=== PATIENT | female | born 1980 | race Caucasian/White ===

== ENCOUNTER → 2018-06-13 07:36 | Outpatient (CLI) | payer OTHER, SELFPAY ==
--- NOTE | 2018-06-13 | DI.MG.S_ITS ---
BILATERAL DIGITAL SCREENING MAMMOGRAM 3D/2D WITH CAD: 06/13/2018 CLINICAL: Routine screening. Comparison is made to exam dated: 08/01/2015 mammogram - [facility]. The tissue of both breasts is heterogeneously dense. This may lower the sensitivity of mammography. Current study was also evaluated with a Computer Aided Detection (CAD) system. No significant masses, calcifications, or other findings are seen in either breast. There has been no significant interval change. IMPRESSION: NEGATIVE There is no mammographic evidence of malignancy. A 1 year screening mammogram is recommended. This exam was interpreted at Station ID: [id number]. NOTE: For mammograms, a report in lay terms will be sent to the patient. Approximately 15% of breast malignancies will not be visualized mammographically. In the management of a palpable breast mass, a negative mammogram must not discourage biopsy of a clinically suspicious lesion. Electronically Signed By: Dain farris/janes:06/13/2018 09:39:08 letter sent: Normal Exam ACR BI-RADS Category 1: Negative [id number]
== END ==
PROVIDERS: Visit Provider Physician Assistant
DX: Z12.31 Encounter for screening mammogram for malignant neoplasm of breast (principal)
CPT/HCPCS: 77063; 77067

== ENCOUNTER → 2018-07-15 09:59 | Outpatient (CLI) | payer OTHER, SELFPAY ==
[2018-07-15 13:25] LABS: Urine N gonorrhoeae NOT DETECTED
[2018-07-15 13:53] LABS: Urine Chlamydia NOT DETECTED
== END ==
PROVIDERS: PCP Physician Assistant; Visit Provider Physician Assistant
DX: Z11.3 Encounter for screening for infections with a predominantly sexual mode of transmission (principal)
CPT/HCPCS: 87491; 87591

== ENCOUNTER → 2018-07-22 13:04 | Outpatient (CLI) | payer OTHER, SELFPAY ==
[2018-07-22 15:31] LABS: Hepatitis B Surface Antigen NEGATIVE s/c (NEGATIVE)
[2018-07-22 15:51] LABS: HIV 1 and 2 Antibody NEGATIVE (NEGATIVE); Hep C Virus Ab w/Reflex Quant NEGATIVE s/c (NEGATIVE)
[2018-07-28 14:36] LABS: Rapid Plasma Reagin NON-REACTIVE
== END ==
PROVIDERS: PCP Physician Assistant; Visit Provider Physician Assistant
DX: Z11.3 Encounter for screening for infections with a predominantly sexual mode of transmission (principal)
CPT/HCPCS: 36415; 86592; 86703; 86803; 87340

== ENCOUNTER → 2020-02-26 10:40 | Outpatient (CLI) | payer OTHER, SELFPAY ==
--- NOTE | 2020-02-26 | DI.US.S_ITS ---
PROCEDURE: US PELVIC COMPLETE INDICATIONS: VAGINAL BLEEDING FOR 4 WEEKS TECHNIQUE: Real-time scanning was performed of the pelvic organs, with image documentation. Additional endovaginal scanning was necessary due to incomplete visualization of the adnexal and endometrial structures by transabdominal scanning. COMPARISON: None. FINDINGS: Transabdominal scanning: Limited scanning through the kidneys shows no hydronephrosis. No pathologic free abdominal or pelvic fluid. Endovaginal scanning: Uterus: Uterus is normal in size at 4.4 x 5.3 x 5.5 cm. The endometrium measures 18 mm in combined thickness (no focal mass, endometrial hyperplasia). Ovaries: Normal in size bilaterally measuring 1.7 x 3.0 x 2.4 cm on the right and 1.4 x 1.8 x 2.2 cm on the left what appears to be likely a small involuting follicular cyst is seen at the right ovary measuring 8 x 11 x 8 mm. IMPRESSION: Endometrial hyperplasia without identifiable mass or polyp appears present, measuring up to 18 mm in combined thickness. The upper limits of normal is 15 mm. Small involuting right ovarian follicular cyst. Dictated by: Thiago Hernandez M.D. on 02/26/2020 at 12:05 Approved by: Thiago Hernandez M.D. on 02/26/2020 at 12:08
== END ==
PROVIDERS: PCP Physician Assistant; Referring Provider Nurse Practitioner Family; Visit Provider Nurse Practitioner Family
DX: N93.8 Other specified abnormal uterine and vaginal bleeding (principal); R10.31 Right lower quadrant pain; N85.00 Endometrial hyperplasia, unspecified; N83.01 Follicular cyst of right ovary
CPT/HCPCS: 76830; 76856

== ENCOUNTER → 2020-06-20 10:45 | Outpatient (CLI) | payer OTHER, SELFPAY ==
[2020-06-21 18:01] LABS: COVID19 Sendout Not Detected (Not Detect)
== END ==
PROVIDERS: PCP Nurse Practitioner Family; Visit Provider Nurse Practitioner
DX: Z11.59 Encounter for screening for other viral diseases (principal)
CPT/HCPCS: 87635

== ENCOUNTER 2020-06-23 06:44 | Day surgery (SDC) | payer OTHER, SELFPAY ==
[2020-06-22 08:12] VITALS: BMI 34.5
[2020-06-23] VITALS (7 sets, daily range): BP systolic 129–171; BP diastolic 92–103; PULSE 87–97; RESP 12–22; TEMP 35.9–36.4; O2SAT 92–95; BMI 34.2
--- NOTE | 2020-06-23 07:09 | PM.PREOP ---
Pre-operative Note COVID-19 COVID-19 status: Negative Result date/Date tested (Pos, Neg/Pending): 06/20/20 Interval Note History & Physical reviewed/Exam performed by Physician: Yes Changes to H&P: No
--- NOTE | 2020-06-23 07:10 | PM.OP.1 ---
Operative Date/Time/Diagnoses Date of procedure: 06/23/20 Time of procedure: 09:15 Pre-op diagnosis: Nasal airway obstruction, septal deviation, turbinate hypertrophy Post-op diagnosis: same Procedure & Clinicians Procedure: 1. Septoplasty 2. Bilateral inferior turbinate reduction via intramural cautery Same procedure as scheduled: Yes Indications: 40-year-old female with the above diagnoses incompletely managed with medical therapy presents for the above procedures. Following discussion of the material risks benefits complications and alternatives, she elected to proceed. Surgeon: Otoniel Sunshine Click Yes if Unassisted: No Anesthesia Type: General and Local Operative Notes Findings: 3+ right septal deviation, long low spur on the right leading to large low septal flap perforation but left septal flap intact. Left inferior and middle turbinate hypertrophy, mild right inferior turbinate hypertrophy. Closure Type: not applicable Specimen(s): none sent Estimated Blood Loss (mL): 200 Blood products transfused: none Procedure in detail: Following identification and confirmation of consent as well as preoperative Afrin nasal spray, the patient was brought to the operating room suite and placed in the supine position. General endotracheal anesthesia was administered. I infiltrated the septum widely bilaterally with 1% lidocaine 1 100,000 epinephrine followed by temporary packing with cotton with Afrin and 4% lidocaine. Following sterile prep and drape, the packing was removed and I performed a right salomón transection incision, elevated the right mucoperichondrial and mucoperiosteal flap, difficult inferiorly due to the large low septal spur extending far posteriorly, leading to a large right flap perforation. I disarticulated near the bony cartilaginous junction and elevated the left mucoperiosteal flap. Deviated portions of the perpendicular plate of the ethmoid and vomer were resected, as well as the maxillary crest. The residual quadrilateral cartilage was further straightened by trimming it inferiorly. A 2 mm strip of cartilage paralleling the residual 1 cm dorsal and caudal strut was resected to further straighten the quadrilateral cartilage. The hemitransfixion incision was closed with interrupted 5 0 chromic followed by a running 4 0 plain gut mattress suture to reapproximate the septal flaps. At case completion, 20/1000th of an inch silastic splints were placed bilaterally, sutured anteriorly with a single 4 0 nylon. The head of each inferior turbinate had been previously infiltrated with additional local anesthetic and a 25 gauge spinal needle was used to impale the length of the turbinate, with cautery on a setting of 15 activated on slow withdrawal. The left middle turbinate was treated in addition. The turbinates were then outfractured. The procedure completed, sponge and needle counts were correct and she was extubated in the operating room and taken to recovery room in stable condition without known complication. Postoperative care: Nasal saline every hour while awake, Vaseline to the nostrils at all times, begin irrigations t.i.d. beginning pod 1. Humidifier at the bedside blowing on her face. Tylenol alternating with Advil for pain control, oxycodone if necessary for breakthrough pain. Complications: none Post-operative Condition: stable Disposition: same day surgery Plan for aftercare: [place] home
[2020-06-23] MEDS: ACETAMINOPHEN 325 MG TABLET 975 MG PO (07:31)
[2020-06-23] MEDS: OXYMETAZOLINE NASAL SPRAY 30 ML 2 SPRAYS NASAL (07:32)
[2020-06-23] MEDS: LACTATED RINGERS 1,000 ML 42 ML IV (07:33)
[2020-06-23] MEDS: SCOPOLAMINE 1 PATCH TOP (07:33)
[2020-06-23] MEDS: LIDOCAINE 1% W/EPI 20 ML INJ (07:50)
[2020-06-23] MEDS: LIDOCAINE 4% SOLN 50 ML 20 ML TOP (07:50)
[2020-06-23] MEDS: OXYMETAZOLINE NASAL SPRAY 30 ML NASAL (07:50)
--- NOTE | 2020-06-23 08:05 | SUR.OPER ---
Supine on padded OR bed, head on pillow, arm padded and tucked at side, legs uncrossed, safety belt at thigh, tape over blanket over lower legs . Pillow under knees.
== END 2020-06-23 10:25 | disposition home or self-care (01) ==
PROVIDERS: Referring Provider Nurse Practitioner Family; Visit Provider Otolaryngology
PROC: (CPT 30520; principal; 2020-06-23 07:45)
DX: J34.2 Deviated nasal septum (principal); J34.3 Hypertrophy of nasal turbinates; J34.89 Other specified disorders of nose and nasal sinuses
CPT/HCPCS: 30520; 30140; J0330; J1100; J2250; J2405; J2704

== ENCOUNTER → 2020-07-18 08:11 | Outpatient (CLI) | payer OTHER, SELFPAY ==
[2020-07-18 09:26] LABS: Testosterone 31.7 ng/dL (5.71-77.0)
== END ==
PROVIDERS: Referring Provider Acupuncturist; Visit Provider Acupuncturist
DX: N92.6 Irregular menstruation, unspecified (principal)
CPT/HCPCS: 36415; 82627; 84403

== ENCOUNTER → 2020-08-24 08:46 | Outpatient (CLI) | payer OTHER, SELFPAY ==
[2020-08-24 11:27] LABS: COVID19 -Nasal RAPID Negative (Negative)
== END ==
PROVIDERS: Visit Provider Physician Assistant
DX: Z03.818 Encounter for observation for suspected exposure to other biological agents ruled out (principal)
CPT/HCPCS: 87635

== ENCOUNTER → 2020-10-21 10:22 | Outpatient (CLI) | payer OTHER, SELFPAY ==
[2020-10-21] MEDS: COVID-19 VACC(MODERNA-1)/PF 100 MCG/0.5 ML VIAL IM (10:39)
== END ==
PROVIDERS: Visit Provider Internal Medicine
DX: Z23 Encounter for immunization (principal)
CPT/HCPCS: 0011A; 91301

== ENCOUNTER → 2020-11-17 10:29 | Outpatient (CLI) | payer OTHER, SELFPAY ==
[2020-11-17] MEDS: COVID-19 VACC #2, MRNA(MOD) 100 MCG/0.5 ML VIAL IM (10:33)
== END ==
PROVIDERS: Visit Provider Internal Medicine
DX: Z23 Encounter for immunization (principal)
CPT/HCPCS: 0012A; 91301

== ENCOUNTER → 2024-02-04 18:57 | Outpatient (CLI) | payer OTHER, SELFPAY ==
[2024-02-04 20:34] LABS: Influenza A - CEPHEID Flu A NEGATIVE (NEGATIVE); Influenza B - CEPHEID Flu B NEGATIVE (NEGATIVE); Respiratory Syncytial Virus Negative (Negative)
[2024-02-04 20:35] LABS: COVID-19 CEPHEID 4-PLEX PCR Negative (Negative)
== END ==
PROVIDERS: Visit Provider Physician Assistant Surgical
DX: R05.9 Cough, unspecified (principal); J02.9 Acute pharyngitis, unspecified
CPT/HCPCS: 0241U; 87070